=== PATIENT | female | born 1940 | race Caucasian/White ===

== ENCOUNTER 2016-05-09 18:29 | Inpatient (IN) | payer OTHER ==
[2016-05-09 20:31] LABS: AGAP 14; ALBUMIN 3.6 g/dL (3.5-5.0); ALKALINE PHOSPHATASE 73 U/L (32-104); AMYLASE 25 U/L (20-200); BASO% 0.3 % (0.0-0.8); BUN 16 mg/dL (8-22); CALCIUM 9.9 mg/dL (8.8-10.2); CHLORIDE 96 mmol/L (98-107); COSMO 263; GOT 26 U/L (10-30); GPT 14 U/L (10-36); HEMATOCRIT 33.8 % (37.0-47.0); HEMOGLOBIN 11.1 g/dL (12.0-16.0); IMM GRAN# 0.12 X1000 (0.0-0.04); IMM GRAN% 0.9 % (0.0-0.5); LIPASE 9 U/L (13-60); LYMPH# 0.82 X1000 (1.2-3.4); MANUAL DIFF NEEDED? NO; MCH 32.3 PG (27-31); MCHC 32.8 g/dL (33-37); MCV 98.3 FL (81-99); MONO# 2.36 X1000 (0.11-0.59); MONO% 17.4 % (1.7-9.3); MPV 11.1 FL (7.4-10.4); NEUT% 75.4 % (42.2-75.2); PLT 386 X1000 (130-400); POTASSIUM 4.2 mmol/L (3.5-5.1); RBC 3.44 XMIL (4.2-5.4); SODIUM 130 mmol/L (136-145); TCO2 20 mmol/L (25-35); TOTAL BILIRUBIN 1.58 mg/dL (0.20-1.00); TOTAL PROTEIN 6.2 g/dL (6.3-8.3)
[2016-05-09 21:28] LABS: URINE CULTURE NEEDED? NO; URINE MICRO REVIEW NEEDED? NO; URINE SOURCE CATH
[2016-05-09 21:31] LABS: BILIRUBIN URINE NEGATIVE (NEGATIVE); BLOOD URINE SMALL (NEGATIVE); COLOR YELLOW; GLUCOSE URINE TRACE mg/dL (NEGATIVE); LEUKOCYTES URINE NEGATIVE (NEGATIVE); NITRITE URINE NEGATIVE (NEGATIVE); PROTEIN URINE 200 mg/dL (NEGATIVE); TURBIDITY URINE CLEAR (CLEAR); UR EPITHELIAL CELLS <10 /HPF (<10); URINE BACTERIA NEGATIVE /HPF; URINE RBC <10 /HPF (<10); URINE WBC <10 /HPF (<10); UROBILINOGEN URINE NORMAL (NORMAL)
--- NOTE | 2016-05-09 23:03 | PROVIDER DOCUMENTATION ---
HPI-General Adult - General Chief Complaint: UTI Symptoms Stated Complaint: UTI, CONSTIPATED Time Seen by Provider: 05/09/16 19:29 Allergies/Adverse Reactions: Patient Allergies Allergy/AdvReac Type Severity Reaction Status Date / Time latex Allergy Mild ITCHING Verified 02/10/16 06:08 Home Medications: Home Medication List Medication Instructions Recorded Confirmed Last Taken Type Allopurinol 300 mg PO DAILY 04/14/15 04/14/15 04/13/15 History Amlodipine [Norvasc] 5 mg PO DAILY 04/14/15 04/14/15 04/13/15 History Coconut Oil 2,000 mg PO DAILY 04/14/15 04/14/15 04/13/15 History Hydrocodone/Acetaminophen [Hoyt 1 tab PO 3-4XDAY PRN PRN 04/14/15 04/14/15 22:00 History 10-325 Tablet] Metoprolol [Lopressor] 25 mg PO DAILY 04/14/15 04/14/15 04/13/15 History Omeprazole 40 mg PO DAILY 04/14/15 04/14/15 04/13/15 History Polyethylene Glycol 3350 [Clearlax] 1 pkg PO DAILY 04/14/15 04/14/15 04/13/15 History Trazodone E.r. [Oleptro ER] 0.5 tab PO DAILY 04/14/15 04/14/15 04/13/15 History Darifenacin E.r. [Enablex] 7.5 mg PO DAILY #30 tablet 02/12/16 Unknown Rx Losartan [Cozaar] 100 mg PO DAILY #30 tablet 02/12/16 Unknown Rx Sertraline [Zoloft] 50 mg PO QAM #30 tablet 02/12/16 Unknown Rx - History of Present Illness -Gen Adult Nature of Presenting Problems: 76 YOWF WITH HX OF PANCREATIC CANCER STAGE 4. PRESENTS TO ED WITH C/O PT STATES SEVERE WEAKNESS. PT 'S SON STATES PT WENT TO SEE DR CHUN, FOR KIDNEY PROBLEM. PT CONTINUED TO GET WORSE THROUGHOUT THE DAY AND DR CHUN TOLD THEM TO COME TO THE ED. Location of Pain/Injury: reports: generalized Pain Radiation: reports: no radiation Quality of Pain: reports: aching Severity: reports: moderate Onset/Duration: reports: 2 days ago Timing: reports: still present Context/Activities at Onset: reports: light activity Modifying Factors: improves with: nothing Associated Symptoms: reports: weakness Similar Symptoms Previously?: No Recently seen or treated by another doctor?: No Review of Systems - Adult - REVIEW OF SYSTEMS - ADULT Constitutional: denies: chills, fever Eyes: reports: no symptoms reported Ears, Nose, Mouth & Throat: reports: no symptoms reported Cardiovascular: denies: chest pain, palpitations, syncope Respiratory: denies: cough, shortness of breath, wheezing Gastrointestinal: denies: abdominal pain, diarrhea, nausea, vomiting Genitourinary: reports: no symptoms reported Musculoskeletal: denies: back pain, neck pain Integumentary: reports: no symptoms reported Neurological: denies: dizziness/vertigo, headache/migraines, syncope Psychiatric: reports: no symptoms reported Endocrine: reports: no symptoms reported Hematologic/Lymphatic: reports: no symptoms reported Allergic/Immunologic: reports: no symptoms reported All Other Systems: Reviewed and Negative Past History - Adult - PAST MEDICAL HISTORY-ADULT Review of Records: denies: Nursing Assessment Review, Medications Reviewed Cardiovascular: reports: HTN Neurological: reports: Seizures/Epilepsy - PRIOR SURGERIES/PROCEDURES Surgical/Procedure History: reports: hysterectomy - IMMUNIZATION STATUS Childhood Immunizations: See Nurse Assessment Flu Vaccine: See Nurse Assessment - FAMILY HISTORY Family History: reviewed, not pertinent - SOCIAL HISTORY Smoking: denies Substance Use: denies Alcohol Use Frequency: never Living Situation: family Physical Exam-General - CONSTITUTIONAL General Appearance: alert, moderate distress - EYES Eyes: PERRL/EOMI, pink conjunctivae - HEAD, EARS, NOSE, MOUTH & THROAT HENMT: normocephalic/atraumatic, moist mucous membranes - NECK Neck: non-tender, full range of motion, supple - RESPIRATORY Respiratory: chest non-tender, lungs clear, normal breath sounds - CARDIOVASCULAR Cardiovascular: normal peripheral pulses, regular rate, rhythm - GASTROINTESTINAL (ABDOMEN) Abdominal Exam: normal bowel sounds, non tender, soft - LYMPHATIC Lymphatic: no adenopathy, axilla node tender - MUSCULOSKELETAL Back Exam: normal inspection, no CVA tenderness, no vertebral tenderness Extremity: normal range of motion, non-tender - SKIN Integumentary: normal color, normal turgor, warm/dry - NEUROLOGIC Neurologic: grossly normal - PSYCHIATRIC Psych/Mental Status: oriented x 3 Departure - Departure Time of Disposition Order: 23:59 DIAGNOSIS: Pancreatic cancer Qualifiers: Pancreatic malignancy location: unspecified Qualified Code(s): C25.9 - Malignant neoplasm of pancreas, unspecified Pneumonia Qualifiers: Pneumonia type: due to unspecified organism Laterality: unspecified laterality Lung location: unspecified part of lung Qualified Code(s): J18.9 - Pneumonia, unspecified organism Disposition: ADMITTED INPATIENT 09 Certified Medical Emergency: Emergent Condition: Stable Additional Instructions: ED Follow Up Instructions: You have been treated by a care provider in the Emergency Department. These instructions are being provided to you so you can have an understanding of how to care for yourself upon discharge. Upon discharge from the Emergency Department, you are responsible for making arrangements for follow-up care by a physician of your choice. Take all prescribed medications as directed. Return to the Emergency Department immediately for any new or worsening symptoms. You may call the Physician Referral phone number at [phone] to obtain a list of Physicians who are taking new patients. Attestation - Scribe Verification/Attestation Scribe:: Yazan Knutson Acting as Scribe for:: James Mcfarland Scribe documention review:: This chart was documented by a scribe and accurately reflects the service the provider performed and the decisions made by the provider.
[2016-05-09] MEDS ORDERED: DUONEB (A & A) INH ONE (23:45)
--- NOTE | 2016-05-10 01:23 | HISTORY AND PHYSICAL ---
PRIMARY CARE PHYSICIAN: Dr. Jose Loyola.. CHIEF COMPLAINT: Shortness of breath. HISTORY OF PRESENTING ILLNESS: A 76-year-old female with a history of metastatic pancreatic cancer, hypertension, and GERD, who presented to the emergency department with a several days history of having shortness of breath. She states that she took some antibiotics prescribed by her primary care, but she did not improve. The patient is a poor historian, however, at the time my examination, she had denied having any headache, nausea, vomiting, diarrhea, chest pain, hemoptysis, but complained of shortness of breath. The patient had imaging done in the ER, which was consistent with pneumonia. She will need hospitalization for further management. PAST MEDICAL HISTORY: Includes metastatic pancreatic cancer, hypertension and GERD. PAST SURGICAL HISTORY: Hysterectomy. ALLERGIES: Lyrica and latex. CURRENT MEDICATIONS: As listed in MAR. SOCIAL HISTORY: No history of smoking, alcohol or illicit drug use. FAMILY HISTORY: No history of coronary disease. REVIEW OF SYSTEMS: Twelve point systems as in the will as was limited and pertinent negatives are as listed on the history of presenting illness. PHYSICAL EXAMINATION: GENERAL: The patient is resting comfortably. VITAL SIGNS: Temperature 98.9, pulse 94, respiration 19, blood pressure 153/58, she is saturating 91%. HEENT: Atraumatic, normocephalic. NECK: No masses. CHEST: Bibasilar rales. CARDIOVASCULAR: Regular rate and rhythm. ABDOMEN: Soft. Positive bowel sounds. EXTREMITIES: Trace edema. NEURO: She is awake, alert, oriented x1. : No bladder distention. SKIN: Warm. LABORATORIES AND STUDIES: UA is nitrite negative, leukocyte negative, bacteria negative. WBC 13.56, hemoglobin 11.1, hematocrit 33.8, platelets 386,000. Sodium 138, potassium 4.2, chloride 96, CO2 is 29, BUN is 16, creatinine 0.9, glucose is 125. ASSESSMENT: A 76-year-old female with a history of pancreatic cancer, hypertension, and GERD, who presented to the emergency department with several days history of shortness of breath. She was found to have infiltrates in the right lower lobe, subsequently she will need hospitalization for further management. 1. Suspected pneumonia. 2. History of metastatic pancreatic cancer. 3. Hypertension. PLAN: 1. We will admit patient to medical floor with telemetry. 2. We will check blood cultures. Start patient on IV antibiotics. 3. We will continue with Lisa's p.r.n. 4. We will monitor her blood pressure, and resume antihypertensive agents. 5. Put patient on DVT prophylaxis with SCDs and Lovenox. 6. We will continue to follow and reassess.
[2016-05-10] MEDS ORDERED: LEVAQUIN 500 MG/D5W 100 ML IV SCH (01:33)
[2016-05-10] MEDS: LOVENOX SUBQ SCH (07:04)
[2016-05-10] MEDS ORDERED: ATIVAN IV ONE (07:44)
--- NOTE | 2016-05-10 08:34 | Diag Imaging Result Document ---
PROCEDURE NAME: FLAT/UPRIGHT ABD/1 VIEW CHEST - 05/09/2016 PLAIN RADIOGRAPHS OF THE CHEST AND ABDOMEN, 3 VIEWS: COMPARISON: Chest radiograph dated 02/11/2016. FINDINGS: There are nonspecific bowel gas and stool patterns. There is no obstructive pattern. There is no evidence of large-volume free abdominal gas. There is no discrete organomegaly. There is a left chest port in stable position. There has been interval development of a dense focal opacity at the left lung base suggesting pneumonia most likely; however, followup PA and lateral chest radiograph is recommended after treatment to assure clearing. There has also been development of a small right effusion. The left lung appears to be clear. Cardiac silhouette is unremarkable. IMPRESSION: 1. Nonspecific abdomen. 2. Interval development of dense focal opacity at the right lung base likely representing pneumonia. Follow-up chest radiograph is recommended. 3. Interval development of a small right pleural effusion.
--- NOTE | 2016-05-10 08:43 | PROGRESS NOTE ---
DATE: 05/10/2015 SUBJECTIVE: Mrs. Greenberg was admitted to [facility] with a right lower lobe pneumonia. She was initially placed on supplemental O2, intravenous Levaquin, and was given Tessalon Perles for cough. This morning, she had a grand mal seizure. She had focal jerking of her upper and lower extremities. She was given Ativan with resolution of the seizure. She is now postictal. She is breathing comfortably, but she is sedated and does not arouse to verbal stimuli. She does have a longstanding history of metastatic adenocarcinoma of the pancreas for which she is undergoing palliative chemotherapy. She had a recent PET scan that was within normal limits. She reportedly had an MRI of the brain within the past 3 months that showed no intracranial metastases. OBJECTIVE: Temperature 97.6 degrees, pulse 100, respiratory rate 28, BP 116/57. CV: Tachycardic, regular. S1, S2. Lungs: Crackles in the right base. Abdomen soft, nontender, with active bowel sounds. ASSESSMENT AND PLAN: 1. New onset grand mal seizure. She has no previous history of a seizure disorder. Her serum sodium was mildly low at 130. She had no hypercalcemia or low potassium levels. I am going to check a magnesium level. Because of her history of metastatic pancreatic cancer, I am going to obtain an MRI of the brain with contrast to rule out intracranial metastases. If her MRI of the brain is unremarkable in combination with normal electrolytes, I suspect that her seizure was due to the underlying Levaquin, and she will not need long-term antiepileptic medications. If she does have brain mets, she will need long-term antiseizure medications. In the interim period of time, I will begin Dilantin 100 mg IV q. 8 hours. 2. Community-acquired pneumonia. She is an immunocompromised host. Levaquin is contraindicated because of the seizure. I am going to begin Zosyn 4.5 g IV q.6 hours pending sputum culture and blood cultures x2. We will add DuoNeb nebulizer treatments. 3. CODE STATUS: Ms. Greenberg does have a living will. She has told me in the past and her son reconfirmed that in the event of a cardiopulmonary arrest that no heroic measures should be undertaken. A no CODE BLUE LEVEL 1 has been established.
[2016-05-10] MEDS: DILANTIN IV SCH ×2 (09:10→17:00)
[2016-05-10] MEDS: ZOSYN 4.5 GM/NS 100 ML IV SCH ×3 (09:10→22:41)
[2016-05-10] MEDS: COZAAR PO SCH ×2 (11:06→14:56)
[2016-05-10] MEDS: LOPRESSOR PO SCH ×2 (11:06→22:41)
[2016-05-10] MEDS: LASIX PO SCH ×2 (11:06→14:56)
[2016-05-10] MEDS: ZYLOPRIM PO SCH ×2 (11:07→14:56)
[2016-05-10] MEDS: ZOLOFT PO SCH ×2 (11:07→14:56)
[2016-05-10] MEDS: DUONEB (A & A) INH SCH ×4 (12:18→22:45)
--- NOTE | 2016-05-10 13:01 | Diag Imaging Result Document ---
PROCEDURE NAME: MRI BRAIN W W/O CONTRAST - 05/10/2016 MRI OF THE BRAIN WITH AND WITHOUT GADOLINIUM: FINDINGS: There are patchy areas of hyperintensity on the FLAIR images, particularly in the subcortical white matter in the left parietal lobe. Some of the T1-weighted images are badly degraded by patient motion. There is no evidence of restricted diffusion. There is no evidence of abnormal gadolinium enhancement. Overall, compared to 04/07/2016, there has been no significant change in the appearance of the brain. IMPRESSION: Chronic ischemic microvascular white matter changes. No evidence of acute infarct or metastatic disease. Findings were discussed with Dr. Loyola by telephone at 1244 hours.
[2016-05-10] MEDS: NORCO-10 PO PRN (17:31)
[2016-05-11] MEDS: DILANTIN IV SCH ×3 (01:35→17:04)
[2016-05-11] MEDS: ZOSYN 4.5 GM/NS 100 ML IV SCH ×4 (02:38→20:55)
[2016-05-11] MEDS: DUONEB (A & A) INH SCH ×7 (03:23→23:03)
[2016-05-11] MEDS: LOVENOX SUBQ SCH (06:17)
--- NOTE | 2016-05-11 06:38 | Diag Imaging Result Document ---
PROCEDURE NAME: CHEST-PORTABLE - 05/11/2016 PORTABLE CHEST: COMPARISON: Compared to 05/09/2016. FINDINGS: No change in the left subclavian [id number]. No pneumothorax. The heart is enlarged. The vessels are not distended. There is an infiltrate in the right base. Slight interval improvement in the costophrenic angle. Questionable tiny effusions. IMPRESSION: Questionable mild interval improvement.
[2016-05-11 07:47] LABS: BASO% 0.6 % (0.0-0.8); EOS# 0.02 X1000 (0.0-0.7); EOS% 0.2 % (0.0-10.0); HEMATOCRIT 29.4 % (37.0-47.0); HEMOGLOBIN 9.9 g/dL (12.0-16.0); IMM GRAN# 0.47 X1000 (0.0-0.04); IMM GRAN% 4.2 % (0.0-0.5); LYMPH# 0.68 X1000 (1.2-3.4); LYMPH% 6.1 % (20.5-51.1); MANUAL DIFF NEEDED? YES; MCH 32.6 PG (27-31); MCHC 33.7 g/dL (33-37); MCV 96.7 FL (81-99); MONO# 2.06 X1000 (0.11-0.59); MONO% 18.5 % (1.7-9.3); MPV 11.1 FL (7.4-10.4); NEUT% 70.4 % (42.2-75.2); PLT 363 X1000 (130-400); RBC 3.04 XMIL (4.2-5.4)
[2016-05-11 07:52] LABS: BANDS 3 % (0-1); EOS 2 % (1-10); LYMPHS 11 % (21-51); MONO 9 % (1-9); NRBC 2 % (0-0)
[2016-05-11 08:00] LABS: CALCIUM 9.1 mg/dL (8.8-10.2)
--- NOTE | 2016-05-11 10:35 | PROGRESS NOTE ---
DATE: 05/11/2016 SUBJECTIVE: Ms. Greenberg was admitted to [facility] with a right lower lobe pneumonia. She continues with a persistent nonproductive cough and mild pleuritic chest pain with deep inspiration and paroxysms of cough. Her white count has dropped from 13,000 to 11,000. Chest x- ray this morning showed that the right lower lobe infiltrate is less prominent. She did have an isolated grand mal seizure yesterday. An MRI of the brain demonstrated no intracranial metastases. She has had no further seizure activity. She apparently had a solitary seizure 30 years ago.Vital signs: Temperature 97.9 degrees, pulse 97, respiratory rate 20, BP 143/72. CV: Regular rate and rhythm. Lungs: Crackles in the right base. Abdomen: Soft, nontender, with active bowel sounds. ASSESSMENT AND PLAN: 1. Pneumonia. I suspect that she has a gram-negative pneumonia she is an immunocompromised host undergoing palliative chemotherapy for underlying metastatic pancreatic cancer. She had a consolidated infiltrate in the right base. She has a leukocytosis. We will continue nebulizer treatments, supplemental O2, and Zosyn 4.5 g IV q.6 hours. Levaquin is contraindicated as she has had a seizure. 2. Solitary seizure. She has had no further seizure activity. I suspect that the seizure was due to administration of Levaquin. I will continue Dilantin 100 mg IV q.8 hours while she is hospitalized. If she has no further seizure activity and given the fact that it was most likely due to the Levaquin, I do not believe that she will need long-term antiseizure medications. 3. Hypokalemia. I will give her KCl 40 mEq IV x1 dose.
[2016-05-11] MEDS: ZOLOFT PO SCH (11:02)
[2016-05-11] MEDS: LOPRESSOR PO SCH ×2 (11:02→20:55)
[2016-05-11] MEDS: LASIX PO SCH (11:02)
[2016-05-11] MEDS: ZYLOPRIM PO SCH (11:02)
[2016-05-11] MEDS: COZAAR PO SCH (11:02)
[2016-05-11] MEDS: POTASSIUM CHLORIDE 20 MEQ/SWI 100 ML IV SCH ×2 (11:06→14:08)
[2016-05-11] MEDS: NORCO-10 PO PRN (15:15)
[2016-05-11] MEDS ORDERED: FLEET MINERAL OIL ENEMA PR ONE (16:19)
[2016-05-12] MEDS: ZOSYN 4.5 GM/NS 100 ML IV SCH ×4 (02:12→23:09)
[2016-05-12] MEDS: DILANTIN IV SCH ×4 (02:12→23:09)
[2016-05-12] MEDS: LOVENOX SUBQ SCH (05:40)
[2016-05-12 06:56] LABS: CALCIUM 8.7 mg/dL (8.8-10.2); POTASSIUM 3.2 mmol/L (3.5-5.1)
[2016-05-12] MEDS: DUONEB (A & A) INH SCH ×5 (07:30→23:19)
[2016-05-12] MEDS: LASIX PO SCH (10:22)
[2016-05-12] MEDS: LOPRESSOR PO SCH ×2 (10:23→20:53)
[2016-05-12] MEDS: COZAAR PO SCH (10:23)
[2016-05-12] MEDS: ZOLOFT PO SCH (10:23)
[2016-05-12] MEDS: ZYLOPRIM PO SCH (10:23)
[2016-05-12] MEDS ORDERED: MILK OF MAGNESIA PO ONE (13:39)
[2016-05-12] MEDS ORDERED: DULCOLAX PR PRN (13:40)
--- NOTE | 2016-05-12 15:00 | PROGRESS NOTE ---
DATE: 05/12/2016 SUBJECTIVE: She states that she is still pretty weak,cannot get up without assistance. She would like to get her Ugalde catheter out but realized she had to keep it in because she needs somebody to help her all the time to get her to the bedside commode. Not eating much. She feels maybe a little better than yesterday. OBJECTIVE: Vital signs: Temperature 97.8 degrees, pulse 77, respirations 16, blood pressure 156/63. Lungs: Are clear in all lung damico. Cardiovascular: Regular rhythm and rate without murmur or S3. Abdomen: Soft. Skin is warm and dry. No abdominal tenderness. LAB: Reviewed from : White count 11,120, hematocrit was 29, platelet count 363,000. Chemistry; sodium 140, potassium 3.2, chloride 103, bicarbonate 23, BUN 15, creatinine 1.0. Blood sugar 125, 147, 100. ASSESSMENT AND PLAN: 1. Pneumonia, gram-negative pneumonia. She has immunocompromised host undergoing palliative chemotherapy for underlying metastatic pancreatic cancer. She has consolidated infiltrate in the right base and leukocytosis which is improving. Clinically she seems to be improving. She is on Zosyn 4.5 g IV q.6 hours. Levaquin is contraindicated as she has recently had a seizure. 2. Solitary seizure. She states her jaw is a little sore and I suspect that may be secondary to seizure, and I suspect the seizure could have been related to her administration of Levaquin, so she is on Dilantin 100 mg IV q.8, probably need to switch that over to p.o. If she has no further seizure activity, may be able to stop that. 3. Hypokalemia. Was supplemented with some potassium. 4. Constipation. We will try some milk of magnesia, Dulcolax suppository. She has had an MRI of her brain the , chronic ischemic microvascular white matter changes but no evidence of any acute pathology. Chest x-ray from the : Questionable mild interval improvement. She has a left subclavian mary carmen catheter, slight interval improvement in the costovertebral angle. Questionable tiny effusions.
[2016-05-12] MEDS: NORCO-10 PO PRN (20:59)
[2016-05-13] MEDS: DILANTIN IV SCH ×3 (00:15→17:43)
[2016-05-13] MEDS: DUONEB (A & A) INH SCH ×6 (03:29→22:50)
[2016-05-13] MEDS: LOVENOX SUBQ SCH (05:22)
[2016-05-13] MEDS: ZOSYN 4.5 GM/NS 100 ML IV SCH ×3 (05:24→21:24)
[2016-05-13] MEDS: COZAAR PO SCH (08:35)
[2016-05-13] MEDS: ZYLOPRIM PO SCH (08:35)
[2016-05-13] MEDS: LOPRESSOR PO SCH ×2 (08:35→21:24)
[2016-05-13] MEDS: LASIX PO SCH (08:35)
[2016-05-13] MEDS: ZOLOFT PO SCH (08:35)
[2016-05-13] MEDS ORDERED: LEVAQUIN PO SCH (13:15)
--- NOTE | 2016-05-13 14:01 | PROGRESS NOTE ---
DATE: 05/13/2016 SUBJECTIVE: She would like to get her Ugalde catheter out. She does feel stronger, doing better. Had a better night. PHYSICAL EXAM: Vital signs: Afebrile temp 98.0 degrees, pulse , respirations 16, blood pressure 155/76. HEENT: Pupils are equal, round and reactive. Respiratory: Lungs are clear in all lung damico. Cardiovascular: Regular rhythm and rate without murmur or S3. Abdomen: Soft. Skin: Is warm and dry. Good urine output 1800 mL. LAB: White count 11,120, hematocrit 29, platelet count 263,000. Sodium 140, potassium 3.2, chloride 103, bicarb 23, BUN 15, creatinine 1.5. ASSESSMENT AND PLAN: 1. Pneumonia, gram negative pneumonia immunocompromise though seems to be feeling better. 2. Metastatic pancreatic cancer. 3. History of solitary seizure on Dilantin. 4. She had a Ugalde catheter was unable to get out of bed, was weak. Will take that out today. 5. Constipation seems to have resolved. Review orders, I do not see any change on allopurinol 300 mg a day, Unasyn q.6 hours, Zoloft 50 mg a day, Lopressor 25 mg b.i.d., Lasix 40 mg a day, Dilantin 100 mg IV q.8, Cozaar 50 mg daily, continue present regimen, will discontinue Ugalde catheter.
[2016-05-13] MEDS: NORCO-10 PO PRN (21:25)
[2016-05-14] MEDS: NORCO-10 PO PRN ×2 (02:25→21:06)
[2016-05-14] MEDS: ZOSYN 4.5 GM/NS 100 ML IV SCH ×4 (02:25→21:05)
[2016-05-14] MEDS: DILANTIN IV SCH ×3 (02:25→17:49)
[2016-05-14] MEDS: DUONEB (A & A) INH SCH ×6 (03:11→23:17)
[2016-05-14] MEDS: ZOLOFT PO SCH (08:57)
[2016-05-14] MEDS: COZAAR PO SCH (08:57)
[2016-05-14] MEDS: LOVENOX SUBQ SCH (08:57)
[2016-05-14] MEDS: LASIX PO SCH (08:57)
[2016-05-14] MEDS: ZYLOPRIM PO SCH (08:57)
[2016-05-14] MEDS: LOPRESSOR PO SCH ×2 (08:57→21:06)
--- NOTE | 2016-05-14 16:31 | PROGRESS NOTE ---
DATE: 05/14/2016 SUBJECTIVE: She feels better with catheter out but she did get up several times during the night. She feels like it is because of hyperactive bladder with some bladder spasms. OBJECTIVE: Vital signs: Temperature 98.4 degrees, pulse 74, respirations 18, blood pressure 148/61. HEENT: Her pupils are equal and round. Neck: CVP less than 6 cm. Lungs: Clear in all lung damico. Cardiovascular: Regular rhythm and rate without murmur or S3. Abdomen: Soft. Intake and output: Urine output was 760 mL. ASSESSMENT AND PLAN: 1. Pneumonia, gram-negative pneumonia, immunocompromised. Doing better clinically. 2. Metastatic pancreatic cancer. 3. History of solitary seizure. On Dilantin. Suspect we will be able to stop the Dilantin. She has not had any further seizure activity. 4. Ugalde catheter was taken out yesterday. A little bit of bladder hyperactivity and spasm. Will try some Ditropan. 5. Constipation which apparently has improved, resolved. Reviewed her orders. Will see if we can try some Dilantin; it may help her. She is still on Unasyn q.6.
[2016-05-14] MEDS ORDERED: DITROPAN PO SCH (17:00)
[2016-05-15] MEDS: DILANTIN IV SCH ×3 (01:48→18:45)
[2016-05-15] MEDS: ZOSYN 4.5 GM/NS 100 ML IV SCH ×4 (04:26→22:24)
[2016-05-15] MEDS: DUONEB (A & A) INH SCH ×6 (05:28→23:30)
[2016-05-15] MEDS ORDERED: VESICARE PO SCH (09:00)
[2016-05-15] MEDS: ZOLOFT PO SCH (09:26)
[2016-05-15] MEDS: ZYLOPRIM PO SCH (09:27)
[2016-05-15] MEDS: LASIX PO SCH (09:27)
[2016-05-15] MEDS: LOPRESSOR PO SCH ×2 (09:27→22:24)
[2016-05-15] MEDS: COZAAR PO SCH (09:27)
[2016-05-15] MEDS: LOVENOX SUBQ SCH (11:04)
--- NOTE | 2016-05-15 11:49 | PROGRESS NOTE ---
DATE: 05/15/2016 SUBJECTIVE: Mrs. Greenberg was admitted to [facility] with a gram-negative pneumonia. She is an immunocompromised host and is undergoing palliative chemotherapy for stage IV adenocarcinoma of the pancreas. Clinically, she continues to improve. She is not running any fevers. She has a minimal nonproductive cough. She has no pleuritic chest pain. She is breathing comfortably and is maintaining O2 saturations of 97-98% on 2 L of O2. Her blood pressure is generally well controlled. She does have a history of an overactive bladder. She came into the hospital with acute urinary retention. We held the Ditropan. She is now having frequent episodes of nocturia and a persistent urge to urinate. OBJECTIVE: Vital Signs: Temperature 98.6, pulse 87, respirations 20. CV: Regular rate and rhythm. Lungs: Clear. Abdomen: Soft, nontender, with active bowel sounds. ASSESSMENT AND PLAN: 1. Gram-negative pneumonia. Clinically, she continues to improve. I am going to check a room air O2 saturation and if her O2 saturation is greater than 90%, I will stop the oxygen. We will continue Zosyn 4.5g IV q.6 hours and I will recheck a PA and lateral chest x-ray today. 2. History of a solitary seizure. She remains seizure free on the Dilantin. I suspect that the seizure was due to Levaquin and we will be able to stop the Dilantin on discharge. 3. Overactive bladder. I am going to begin VESIcare 5 mg daily. I am hoping that the VESIcare will have left anticholinergic side effects than the Ditropan.
--- NOTE | 2016-05-15 12:18 | Diag Imaging Result Document ---
PROCEDURE NAME: CHEST-2 VIEWS - 05/15/2016 PA AND LATERAL RADIOGRAPH OF THE CHEST: COMPARISON: 05/11/2016. FINDINGS: The left chest port is in stable position. There has been significant improvement in the infiltrate at the right lung base. A small residual infiltrate persists. There is mild costophrenic blunting suggesting a probable trace effusion. No new consolidations are identified. Cardiac silhouette is stable. IMPRESSION: Interval significant improvement in the right basilar consolidation.
[2016-05-15 12:20] LABS: BASO% 2.9 % (0.0-0.8); EOS# 0.11 X1000 (0.0-0.7); EOS% 1.1 % (0.0-10.0); HEMATOCRIT 33.1 % (37.0-47.0); HEMOGLOBIN 10.9 g/dL (12.0-16.0); IMM GRAN# 1.72 X1000 (0.0-0.04); IMM GRAN% 17.6 % (0.0-0.5); LYMPH# 1.78 X1000 (1.2-3.4); LYMPH% 18.2 % (20.5-51.1); MANUAL DIFF NEEDED? YES; MCH 31.9 PG (27-31); MCHC 32.9 g/dL (33-37); MCV 96.8 FL (81-99); MONO# 1.97 X1000 (0.11-0.59); MONO% 20.1 % (1.7-9.3); MPV 10.7 FL (7.4-10.4); NEUT% 40.1 % (42.2-75.2); PLT 328 X1000 (130-400); RBC 3.42 XMIL (4.2-5.4)
[2016-05-15 12:39] LABS: BANDS 5 % (0-1); BASO 1 % (0-1); HYPOCHROM OCCASIONAL; LYMPHS 17 % (21-51); MONO 21 % (1-9)
[2016-05-15 12:44] LABS: AGAP 14; BUN 7 mg/dL (8-22); CALCIUM 8.6 mg/dL (8.8-10.2); CHLORIDE 101 mmol/L (98-107); COSMO 279; POTASSIUM 3.2 mmol/L (3.5-5.1); SODIUM 140 mmol/L (136-145); TCO2 25 mmol/L (25-35)
[2016-05-15] MEDS: NORCO-10 PO PRN (22:25)
[2016-05-16] MEDS: DUONEB (A & A) INH SCH ×6 (03:40→23:12)
[2016-05-16] MEDS: ZOSYN 4.5 GM/NS 100 ML IV SCH ×5 (04:12→23:41)
[2016-05-16] MEDS: DILANTIN IV SCH (04:12)
[2016-05-16] MEDS: NORCO-10 PO PRN ×3 (04:12→23:41)
[2016-05-16] MEDS: LOVENOX SUBQ SCH (08:20)
[2016-05-16] MEDS: ZYLOPRIM PO SCH (08:21)
[2016-05-16] MEDS: COZAAR PO SCH (08:21)
[2016-05-16] MEDS: DITROPAN XL PO SCH (08:21)
[2016-05-16] MEDS: ZOLOFT PO SCH (08:21)
[2016-05-16] MEDS: LOPRESSOR PO SCH ×2 (08:21→21:04)
[2016-05-16] MEDS ORDERED: DITROPAN XL PO SCH (09:00)
--- NOTE | 2016-05-16 14:20 | PROGRESS NOTE ---
DATE: 05/16/2016 SUBJECTIVE: Clinically Mrs. Greenberg continues to improve. She is maintaining O2 saturations of 95- 96% on room air. She has a minimal nonproductive cough. She has no pleuritic chest pain. Her chest x-ray shows substantial improvement in the degree of the right lower lobe infiltrate. We started VESIcare last night and she is concerned that the VESIcare has dramatically increased her blood pressure. Her blood pressure this morning was 207/83. She denies any chest pain, palpitations, or anginal equivalents. OBJECTIVE: Vital signs: Temperature 98.5 degrees, pulse 92, BP 207/83. CV: Regular rate and rhythm. Lungs: Clear. Abdomen: Soft, nontender, with active bowel sounds. ASSESSMENT AND PLAN: 1. Gram-negative pneumonia. Clinically she continues to improve. She is maintaining excellent O2 saturations of 95-96% on room air. I am going to switch her to Augmentin 500 mg t.i.d. for an additional 10 days. 2. Hypertension. Her blood pressure is elevated. I am going to increase the losartan to 100 mg daily. I will recheck her blood pressure in several hours. If her blood pressure has improved I will plan on discharging her home today. 3. If the patient is able to go home today we will make arrangements for her to have home health.
[2016-05-17] MEDS: DUONEB (A & A) INH SCH ×2 (02:56→07:53)
[2016-05-17] MEDS: NORCO-10 PO PRN (05:19)
[2016-05-17] MEDS: ZOSYN 4.5 GM/NS 100 ML IV SCH (05:20)
[2016-05-17] MEDS ORDERED: LOPRESSOR PO SCH (08:10)
[2016-05-17] MEDS: COZAAR PO SCH (08:12)
[2016-05-17] MEDS: DITROPAN XL PO SCH (08:12)
[2016-05-17] MEDS: ZOLOFT PO SCH ×3 (08:12→10:30)
[2016-05-17] MEDS: ZYLOPRIM PO SCH (08:13)
[2016-05-17] MEDS: LOVENOX SUBQ SCH (08:13)
[2016-05-17 08:45] VITALS: BP 175/70
[2016-05-17] MEDS ORDERED: LASIX PO SCH (09:00)
[2016-05-17] MEDS ORDERED: AMPICILLIN PO SCH (09:00)
--- NOTE | 2016-05-17 12:12 | DISCHARGE SUMMARY ---
ADMISSION DATE: 05/10/2016 DISCHARGE DATE: 05/17/2016 DISCHARGE DIAGNOSES: 1. Acute respiratory failure with hypoxia secondary to gram negative pneumonia in the setting of an immunocompromised host. 2. Stage IV metastatic pancreatic carcinoma. 3. Essential hypertension. 4. Gastroesophageal reflux disease. 5. Major depression. DISCHARGE INSTRUCTIONS: 1. Return to clinic in 1 week to see me, Dr. Darrell Loyola. 2. Activity as tolerated. 3. Healthy heart diet. MEDICATIONS: 1. Ampicillin 500 mg b.i.d. for 10 days. 2. Dulcolax suppositories 1 per rectum q.6 hours as needed for constipation. 3. Lasix 20 mg daily. 4. [place] 10/325 1 p.o. q.6 hours p.r.n. pain. 5. Losartan 100 mg daily. 6. Metoprolol 50 mg b.i.d. 7. Ditropan XL 10 mg daily. 8. Zoloft 100 mg daily. 9. Allopurinol 300 mg daily. 10. Lorazepam 1 mg at bedtime. 11. Omeprazole 40 mg daily. DISCHARGE PHYSICAL EXAMINATION: This is a chronically frail appearing 76-year-old lady in no apparent distress. She is afebrile. Vital Signs: Temperature 98.3 degrees, pulse 94, respirations 18 and BP 175/70. CV: Regular rate and rhythm. Lungs: Clear. Abdomen: Soft, nontender with active bowel sounds. HOSPITAL COURSE: Mrs. Greenberg was admitted to [facility] complaining of shortness of breath, pleuritic chest pain and fevers. Her chest x-ray showed a right lower lobe infiltrate. Her initial leukocytosis was 13,000. The patient was placed on supplemental O2, DuoNeb nebulizer treatments and IV Levaquin. She had an isolated grand mal seizure. We stopped the Levaquin. There were no obvious electrolyte abnormalities. An MRI of the brain demonstrated no intracranial metastases. We initially loaded her with IV Dilantin. She remained seizure free. We felt that she had an isolated seizure secondary to a quinolone and quinolones like Levaquin are contraindicated in the future. We switched her to IV Zosyn and continued aggressive pulmonary toilet. Over the course of the next several days, she made slow but steady progress. Her most recent chest x-ray showed near resolution of the pneumonia. We switched her to oral ampicillin and she will take an additional 10 day course of ampicillin as an outpatient. We were gradually able to wean her off oxygen last night in chronic stable condition within 48 hours of discharge. She desaturated to 85% at rest. We resumed O2 at 2 L per nasal cannula. Her O2 saturations have been in the range of 96-98%. We will make arrangements for her to have O2 at 2 L per nasal cannula continuously and will also make arrangements for her to have portable oxygen. She does have a longstanding history of hypertension. Her blood pressure fluctuated. We made various adjustments in her medications. We increased the losartan to 100 mg daily and increased the Toprol-XL to 50 mg b.i.d. Her blood pressure was trending down at the time of discharge. She denied any anginal equivalent. I will see her back in the office in 1 week for a transition of care visit. Having reached maximum hospital benefit, the patient was discharged in stable condition.
== END 2016-05-17 13:26 | disposition home health service (06) | DRG 177 ==
LOC: ED 18:29 → EDIPHOLD 05-10 00:54 → 3N 05-10 02:41
PROVIDERS: ADMIT Internal Medicine; ATTEND Internal Medicine
DX: J15.6 Pneumonia due to other Gram-negative bacteria (principal); J96.01 Acute respiratory failure with hypoxia; C25.9 Malignant neoplasm of pancreas, unspecified; I10 Essential (primary) hypertension; N32.89 Other specified disorders of bladder; K21.9 Gastro-esophageal reflux disease without esophagitis; G40.409 Other generalized epilepsy and epileptic syndromes, not intractable, without status epilepticus; E87.6 Hypokalemia; K59.00 Constipation, unspecified; R33.9 Retention of urine, unspecified; N32.81 Overactive bladder; F32.9 Major depressive disorder, single episode, unspecified; Z79.899 Other long term (current) drug therapy; Z66 Do not resuscitate; T37.8X5A Adverse effect of other specified systemic anti-infectives and antiparasitics, initial encounter
CPT/HCPCS: 36415; 70553; 71010; 71020; 74022; 80048; 80053; 81001; 82150; 82948; 83605; 83690; 83735; 85025; 87040; 87070; 87205; 89220; 94640; 94760; 94761; 96374; A9579; J1165; J1650; J2060; J2543; J3480; P9612; 97116-GP; 97530-GP